=== PATIENT | female | born 1955 | race Caucasian/White ===

== ENCOUNTER 2018-06-21 10:33 | Emergency (ER) | payer OTHER ==
--- NOTE | 2018-06-21 11:24 | EDM.PDOC ---
ED HPI GENERAL MEDICAL PROBLEM - General Chief Complaint: Respiratory Problem Stated Complaint: COUGH,CONGESTION Time Seen by Provider: 06/21/18 10:34 Source of Information: Reports: Patient History Limitations: Reports: No Limitations - History of Present Illness INITIAL COMMENTS - FREE TEXT/NARRATIVE: HISTORY AND PHYSICAL: History of present illness: Patient is a 62-year-old female who presents to the emergency room today with complaints of cough, pain to anterior low ribs bilaterally, and slight shortness of breathe x 1 week. Patient states she was seen at the clinic earlier for sinus infection and placed on Augmentin. She states she did express concerns of her respiratory symptoms at that time, but was told that her lungs sounded clear. She states since that time she has had worsening cough and discomfort to the posterior ribs bilaterally is concerned she has pneumonia or "infiltrate". Review of systems: As per history of present illness and below otherwise all systems reviewed and negative. Past medical history: As per history of present illness and as reviewed below otherwise noncontributory. Surgical history: As per history of present illness and as reviewed below otherwise noncontributory. Social history: No reported history of drug or alcohol abuse. Family history: As per history of present illness and as reviewed below otherwise noncontributory. Physical exam: General: Developed and well-nourished 62-year-old female. Alert and oriented. Nontoxic appearing and in no acute distress. HEENT: Atraumatic, normocephalic, pupils equal and reactive bilaterally, negative for conjunctival pallor or scleral icterus, mucous membranes moist, throat clear, neck supple, nontender, trachea midline. No drooling or trismus noted. No meningeal signs Lungs: Clear to auscultation, breath sounds equal bilaterally, chest nontender. Heart: S1S2, regular rate and rhythm without overt murmur Abdomen: Soft, nondistended, nontender. Negative for masses or hepatosplenomegaly. Negative for costovertebral tenderness. Pelvis: Stable nontender. Genitourinary: Deferred. Rectal: Deferred. Skin: Intact, warm, dry. No lesions or rashes noted. Extremities: Atraumatic, negative for cords or calf pain. Neurovascular unremarkable. Neuro: Awake, alert, oriented. Cranial nerves II through XII unremarkable. Cerebellum unremarkable. Motor and sensory unremarkable throughout. Exam nonfocal. Notes: X-ray shows minor patchy/streaky densities at both lung bases which are probably representing scarring or atelectasis. No evidence of pneumonia or infiltrate. EKG is unremarkable with a sinus rhythm and rate of 77. EKG unchanged from previous EKG 01/15/2015. Diagnostics: CXR, EKG Therapeutics: [] Impression: Bronchitis Plan: 1. Please complete your antibiotic. 2. New prescription for a Medrol dosepak and inhaler for symptomatic relief have been prescribed and electronically sent. 3. Follow-up with your primary care provider in the next 1-2 days. Return to the ED as needed and as discussed. Definitive disposition and diagnosis as appropriate pending reevaluation and review of above. - Related Data Allergies Allergy/AdvReac Type Severity Reaction Status Date / Time erythromycin base Allergy Swollen Verified 06/28/15 11:20 Eyes latex Allergy Redness Verified 06/28/15 11:20 Tetracyclines Allergy Rash Verified 06/28/15 11:20 Home Meds: Home Meds Ca Carbonate/Vitamin D3/Vit K [Citracal Soft Chew] 1 dose PO DAILY 01/15/15 [ History] Denosumab [Prolia] 1 dose INJECT ASDIRECTED 01/15/15 [History] LORazepam [Ativan] 1 tab PO ASDIRECTED PRN 01/15/15 [History] Lisinopril 1 tab PO BEDTIME 01/15/15 [History] Multivitamin [Multivitamins] 1 tab PO DAILY 01/15/15 [History] Psyllium with Sucrose [Metamucil] 1 dose PO ASDIRECTED 01/15/15 [History] Estradiol [Vagifem] 1 applic VAG ASDIRECTED 06/28/15 [History] Aspirin [[place] Aspirin] 81 mg PO DAILY 06/30/15 [History] Albuterol [Proventil HFA] 1 puff INH QID PRN #1 inhaler 06/21/18 [Rx] methylPREDNISolone [Medrol] 4 mg PO DAILY #1 dospk 06/21/18 [Rx] Past Medical History Other Gastrointestinal History: Occasional heartburn, treat with Pepcid, sometimes Rolaids Other Neuro History: Some headaches, past hx: Migraines "none for long time, since post menopausal", hx: Memory loss episode possible 'TIA' testing did not show any evidence but symptoms present and no residual problems Other Dermatologic History: Occasional rash from something when out gardening from time to time - Past Surgical History Other Male Surgeries/Procedures: Laparoscopy, Hysterectomy, has had Bilateral Salpingo-oophorectomy ED ROS GENERAL - Review of Systems Review Of Systems: ROS reveals no pertinent complaints other than HPI. ED EXAM, GENERAL - Physical Exam Exam: See Below (See dictation) Course - Orders/Labs/Meds Orders: Active Orders 24 hr Category Date Time Status EKG Documentation Completion [RC] STAT Care 06/21/18 11:06 Active Chest 2V [CR] Stat Exams 06/21/18 10:34 Taken Departure - Departure Time of Disposition: 11:29 Disposition: Home, Self-Care 01 Clinical Impression: Bronchitis - Discharge Information Prescriptions: Albuterol [Proventil HFA] 1 puff INH QID PRN #1 inhaler PRN Reason: Dyspnea methylPREDNISolone [Medrol] 4 mg PO DAILY #1 dospk Instructions: Acute Bronchitis, Adult, [id number] Referrals: PCP,Unknown [Primary Care Provider] - Forms: ED Department Discharge Additional Instructions: The following information is given to patients seen in the emergency department who are being discharged to home. This information is to outline your options for follow-up care. We provide all patients seen in our emergency department with a follow-up referral. The need for follow-up, as well as the timing and circumstances, are variable depending upon the specifics of your emergency department visit. If you don't have a primary care physician on staff, we will provide you with a referral. We always advise you to contact your personal physician following an emergency department visit to inform them of the circumstance of the visit and for follow-up with them and/or the need for any referrals to a consulting specialist. The emergency department will also refer you to a specialist when appropriate. This referral assures that you have the opportunity for follow-up care with a specialist. All of these measure are taken in an effort to provide you with optimal care, which includes your follow-up. Under all circumstances we always encourage you to contact your private physician who remains a resource for coordinating your care. When calling for follow-up care, please make the office aware that this follow-up is from your recent emergency room visit. If for any reason you are refused follow-up, please contact the [facility] Emergency Department at and asked to speak to the emergency department charge nurse. [facility] [address] [place] [id number] 1. Please complete your antibiotic. 2. New prescription for a Medrol dosepak and inhaler for symptomatic relief have been prescribed and electronically sent. 3. Follow-up with your primary care provider in the next 1-2 days. Return to the ED as needed and as discussed. - My Orders Last 24 Hours: My Active Orders 06/21/18 10:34 Chest 2V [CR] Stat 06/21/18 11:06 EKG Documentation Completion [RC] STAT - Assessment/Plan Last 24 Hours: My Active Orders 06/21/18 10:34 Chest 2V [CR] Stat 06/21/18 11:06 EKG Documentation Completion [RC] STAT
[2018-06-21 11:41] VITALS: BP 131/66
--- NOTE | 2018-06-23 11:39 | CR ---
EXAM DATE: 06/21/18 PATIENT'S AGE: 62 Patient: OTTONIEL RICARDO Facility: [place], [place] Site . Site : [id number] Study: XRay Chest [id number]/21/2018 10:49:47 AM Ordering Physician: Doctor Longo Final Report: HISTORY: Chest pain and [id number]. FINDINGS: Two views of the chest are provided. There are minimal streaky and patchy densities at both lung bases which could represent scarring or minor atelectasis. No focal airspace consolidation is noted to suggest pneumonia radiographically. The mid and upper portions of the lungs are clear and there is no evidence for pneumothorax or pleural effusion. Cardiac silhouette size is enlarged. IMPRESSION: 1. Minor patchy or streaky densities at both lung bases probably representing atelectasis or scarring. 2. Cardiac silhouette enlargement which could represent cardiomegaly, pericardial effusion or both. Dictated by Wiliam Hsieh MD @ Jun 21 2018 11:12AM (Electronic Signature) Report Signed by Proxy. JUAN A
== END 2018-06-21 11:50 | disposition home or self-care (01) ==
LOC: MW.ED 10:33
DX: J40 Bronchitis, not specified as acute or chronic (principal); Z91.040 Latex allergy status; Z88.1 Allergy status to other antibiotic agents; Z79.82 Long term (current) use of aspirin; Z79.899 Other long term (current) drug therapy
CPT/HCPCS: 71046; 71046-26; 93005; 99283; 99283-25

== ENCOUNTER 2020-10-14 14:57 | Observation (INO) | payer MEDICARE, OTHER ==
--- NOTE | 2020-10-14 15:23 | EDM.PDOC ---
ED [facility] GENERAL MEDICAL PROBLEM - General Chief Complaint: Chest Pain Stated Complaint: CHEST PAIN Time Seen by Provider: 10/14/20 15:00 Source of Information: Reports: Patient, Old Records History Limitations: Reports: No Limitations - History of Present Illness INITIAL COMMENTS - FREE TEXT/NARRATIVE: This is a very pleasant 65-year-old female with a past medical history of depr ession, SVT, hypertension presenting with palpitations and chest discomfort. She reports that around 2:00 in the afternoon, she began experiencing substernal chest pain described as "sharp". This is accompanied by feeling somewhat breathless and lightheaded. Symptoms lasted for about 15 minutes and then totally went away. She was concerned so she came to the emergency department for further evaluation. She denies any fever, cough, hemoptysis, history of venous thromboembolism, associated diaphoresis, nausea, or vomiting. No chest wall trauma. No lower extremity swelling or pain. Patient denies history of venous thromboembolism, lower extremity pain or swelling, hemoptysis, recent surgery or immobilization or long travel, history of active malignancy, or hormonal medication/product usage. At present she has no complaints. ROS: A 10-point review of systems was negative, except as noted in the HPI (or in the ROS section of this note). Past medical history: Reviewed, no additional pertinent history. Surgical history: Reviewed in system, no additional pertinent history. Social history: Reviewed in system, no additional pertinent history. Family history: Reviewed in system, no additional pertinent history. PHYSICAL EXAM Vital signs reviewed. Nursing notes reviewed. Constitutional: Awake, alert, non-distressed. Head: Normocephalic, atraumatic. Eyes: EOMI, conjunctiva normal, no discharge, no scleral icterus. Ears, Nose, Throat: External ears and nose normal, moist oral mucosa. Cardiovascular: 2+ radial pulses bilaterally, capillary refill less than 2 seconds. Pulmonary: normal work of breathing, no accessory muscle use. Abdomen/GI: Soft, nontender, nondistended, no guarding or rigidity, no masses. Musculoskeletal: No deformities. Integumentary: Appropriate color for ethnicity, warm, dry, no pallor or jaundice, no rash. Neurologic: Alert, answering questions appropriately, normal speech, no facial droop, moving all extremities well. Psychiatric: Appropriate mood and affect, normal thought process. This patient was seen and evaluated during the 2019 SARS-CoV-2 novel coronavirus pandemic period. Community viral transmission is ongoing at time of this encounter and the emergency department is operating under pandemic response procedures. chest Pain Score (Numeric/FACES): 3 - Related Data Allergies Allergy/AdvReac Type Severity Reaction Status Date / Time erythromycin base Allergy Swollen Verified 10/14/20 15:58 Eyes latex Allergy Redness Verified 10/14/20 15:58 Tetracyclines Allergy Rash Verified 10/14/20 15:58 Home Meds: Home Meds LORazepam [Ativan] 0.5 mg PO ASDIRECTED PRN 01/15/15 [History] Lisinopril 1 tab PO QPM 01/15/15 [History] Multivitamin [Multivitamins] 1 tab PO DAILY 01/15/15 [History] Aspirin [[place] Aspirin EC] 81 mg PO ASDIRECTED 06/30/15 [History] Sertraline HCl 50 mg PO BEDTIME 10/17/18 [History] Calcium/D3/Zinc/Copper/Danielle [Citracal-D3 Maximum Plus Caplt] 1,200 mg PO DAILY 10/14/20 [History] Psyllium Husk [Metamucil] 1 tsp PO DAILY 10/14/20 [History] Past Medical History Cardiovascular History: Reports: Hypertension Gastrointestinal History: Reports: Irritable Bowel Syndrome, Other (See Below) Other Gastrointestinal History: Occasional heartburn, treat with Pepcid, sometimes Rolaids Musculoskeletal History: Reports: Other (See Below) Other Musculoskeletal History: osteopenia Other Neuro History: Some headaches, past hx: Migraines "none for long time, since post menopausal", hx: Memory loss episode possible 'TIA' testing did not show any evidence but symptoms present and no residual problems Other Dermatologic History: Occasional rash from something when out gardening from time to time - Infectious Disease History Infectious Disease History: Reports: Chicken Pox - Past Surgical History HEENT Surgical History: Reports: Tonsillectomy GI Surgical History: Reports: Appendectomy Female Surgical History: Reports: Hysterectomy, Oophorectomy Social & Family History - Family History Family Medical History: No Pertinent Family History - Caffeine Use Caffeine Use: Reports: Coffee ED ROS GENERAL - Review of Systems Review Of Systems: See Below ED EXAM, GENERAL - Physical Exam Exam: See Below #1 Interpretation EKG Interpretation Comments: 12-Lead ECG Interpretation Acquired: 3:05 PM Rhythm: Sinus rhythm Rate: 82 bpm Bowie: Normal Intervals: Normal Ectopy: None RV Strain: No obvious RV strain pattern. ST Segments/T-Waves: ST segment deviation in leads II, 3, aVF, V5-6. T wave inversions in leads II, aVF, V3-5 Acute Ischemic Changes: New T wave inversion in leads V3 through 5 Interpretation: No STEMI. Multilead ST segment depression. Compared to most recent ECG 10/17/2018, new T wave inversions in leads V3-6. Course - Vital Signs Text/Narrative:: Patient hemodynamically stable, afebrile, well-appearing, looks nontoxic. Differential diagnosis includes but is not limited to: ACS, pulmonary embolism, aortic dissection, acute systolic heart failure, pneumonia, pneumothorax, pericardial effusion, pleural effusion, pericarditis, endocarditis, esophageal rupture, GERD, drug-induced chest pain, chest wall pain, and many others. 5:39 PM: Initial troponin negative. Twelve-lead EKG shows new subtle T wave inversions in the anterolateral precordial leads. Patient has been pain-free since before she arrived in the emergency department. Labs are otherwise reassuring. TSH is negative. Chest x-rays show no acute findings. We will obtain 3-hour delta troponin and repeat EKG. 6:37 PM: Given new ECG abnormalities, would favor admission to observation status for serial troponins and ECGs. Second time troponin is ordered. Patient remains pain-free, asymptomatic, resting comfortably. I spoke with the hospitalist Dr. Quarles who agrees to admit to observation. COVID test pending. Remained in the ED through shift change, signed out to Dr. Valero awaiting admission. HEART Score for Major Cardiac Events RESULT SUMMARY: 5 points Moderate Score (4-6 points) Risk of MACE of 12-16.6%. If EKG is highly suspicious, many experts recommend further workup and admission even with a low HEART Score. INPUTS: History > 0 = Slightly suspicious EKG > 2 = Significant ST deviation Age > 2 = ?65 Risk factors > 1 = 1-2 risk factors Initial troponin > 0 = ?normal limit Last Recorded V/S: Last Vital Signs Temp 36.4 C 10/14/20 14:58 Pulse 82 10/14/20 16:00 Resp 17 10/14/20 16:00 BP 125/80 10/14/20 16:00 Pulse Ox 98 10/14/20 16:00 - Orders/Labs/Meds Orders: Active Orders 24 hr Category Date Time Status Admission Status [Patient Status] [ADT] Stat ADT 10/14/20 18:35 Active Cardiac Monitoring [RC] . DIRECTED Care 10/14/20 15:00 Active EKG 12 Lead [EKG Documentation Completion] [RC] STAT Care 10/14/20 16:34 Active Pulse Oximetry [RC] ASDIRECTED Care 10/14/20 15:00 Active CORONAVIRUS COVID-19 PCR PHL Stat Lab 10/14/20 18:36 Ordered TROPONIN I [CHEM] Routine Lab 10/14/20 18:20 Received Labs: Laboratory Tests 10/14/20 10/14/20 10/14/20 Range/Units 16:07 16:07 16:07 WBC 8.21 (4.0-11.0) K/uL RBC 4.29 L (4.30-5.90) M/uL Hgb 13.3 (12.0-16.0) g/dL Hct 41.0 (36.0-46.0) % MCV 95.6 (80.0-98.0) fL MCH 31.0 (27.0-32.0) pg MCHC 32.4 (31.0-37.0) g/dL RDW Std Deviation 44.6 (28.0-62.0) fl RDW Coeff of Mica 13 (11.0-15.0) % Plt Count 310 (150-400) K/uL MPV 9.70 (7.40-12.00) fL Neut % (Auto) 66.9 (48.0-80.0) % Lymph % (Auto) 22.8 (16.0-40.0) % Todd % (Auto) 8.5 (0.0-15.0) % Eos % (Auto) 1.6 (0.0-7.0) % Baso % (Auto) 0.2 (0.0-1.5) % Neut # (Auto) 5.5 (1.4-5.7) K/uL Lymph # (Auto) 1.9 (0.6-2.4) K/uL Todd # (Auto) 0.7 (0.0-0.8) K/uL Eos # (Auto) 0.1 (0.0-0.7) K/uL Baso # (Auto) 0.0 (0.0-0.1) K/uL Nucleated RBC % 0.0 /100WBC Nucleated RBCs # 0 K/uL Sodium 141 (136-145) mmol/L Potassium 3.9 (3.5-5.1) mmol/L Chloride 106 (98-107) mmol/L Carbon Dioxide 29.2 (21.0-32.0) mmol/L BUN 17 (7.0-18.0) mg/dL Creatinine 0.9 (0.6-1.0) mg/dL Est Cr Clr Drug Dosing 46.40 mL/min Estimated GFR (MDRD) > 60.0 ml/min Glucose 121 H (74-106) mg/dL Calcium 9.0 (8.5-10.1) mg/dL Total Bilirubin 0.2 (0.2-1.0) mg/dL AST 31 (15-37) IU/L ALT 43 (14-63) IU/L Alkaline Phosphatase 111 (46-116) U/L Troponin I < 0.050 (0.000-0.056) ng/mL Total Protein 7.3 (6.4-8.2) g/dL Albumin 3.9 (3.4-5.0) g/dL Globulin 3.4 (2.6-4.0) g/dL Albumin/Globulin Ratio 1.1 (0.9-1.6) TSH 3rd Generation 2.99 (0.36-3.74) uIU/mL Departure - Departure Time of Disposition: 18:36 Disposition: Refer to Observation Condition: Good Clinical Impression: Chest pain in adult, Abnormal ECG Referrals: PCP,None [Ordering Only Provider] - Forms: ED Department Discharge Sepsis Event Note (ED) - Focused Exam Vital Signs: Vital Signs Temp Pulse Resp BP Pulse Ox 10/14/20 16:00 82 17 125/80 98 10/14/20 14:58 36.4 C 88 17 137/79 96 - My Orders Last 24 Hours: My Active Orders 10/14/20 15:00 Cardiac Monitoring [RC] . DIRECTED Pulse Oximetry [RC] ASDIRECTED 10/14/20 16:34 EKG 12 Lead [EKG Documentation Completion] [RC] STAT 10/14/20 18:20 TROPONIN I [CHEM] Routine 10/14/20 18:35 Admission Status [Patient Status] [ADT] Stat 10/14/20 18:36 CORONAVIRUS COVID-19 PCR PHL Stat - Assessment/Plan Last 24 Hours: My Active Orders 10/14/20 15:00 Cardiac Monitoring [RC] . DIRECTED Pulse Oximetry [RC] ASDIRECTED 10/14/20 16:34 EKG 12 Lead [EKG Documentation Completion] [RC] STAT 10/14/20 18:20 TROPONIN I [CHEM] Routine 10/14/20 18:35 Admission Status [Patient Status] [ADT] Stat 10/14/20 18:36 CORONAVIRUS COVID-19 PCR PHL Stat
--- NOTE | 2020-10-14 15:56 | CR ---
Indication: Chest pain Comparison: Two-view chest June 21, 2018 Technique: PA and Lateral views chest Findings: There is mild hyperinflation and chronic interstitial change with minimal basilar atelectasis versus scar. The cardiac silhouette is mildly prominent. The bony thorax is grossly intact. Impression: Hyperinflation and chronic interstitial changes without acute cardiopulmonary abnormality. Dictated by Karthik Malone MD @ Oct 14 2020 3:53PM Signed by Dr. Karthik Malone @ Oct 14 2020 3:54PM
[2020-10-14 16:41] LABS: BLOOD UREA NITROGEN,BUN 17 mg/dL (7.0-18.0); CARBON DIOXIDE,CO2 29.2 mmol/L (21.0-32.0); CHLORIDE,CL 106 mmol/L (98-107); GLUCOSE RANDOM 121 mg/dL (74-106); POTASSIUM,K 3.9 mmol/L (3.5-5.1); SODIUM,NA 141 mmol/L (136-145)
[2020-10-14] MEDS ORDERED: Sodium Chloride 0.9% 10 ML SDV IV PRN (19:09)
[2020-10-14] MEDS ORDERED: Sodium Chloride 0.9% 10 ML Syringe FLUSH PRN (19:09)
[2020-10-14] MEDS ORDERED: Ondansetron 4 MG/2 ML SDV IVPUSH PRN (19:09)
[2020-10-14] MEDS ORDERED: Sodium Chloride 0.9% 2.5 ML Syringe FLUSH PRN (19:09)
[2020-10-14] MEDS ORDERED: Acetaminophen 325 MG Tab PO PRN (19:09)
--- NOTE | 2020-10-14 19:50 | PCM.HP.2 ---
H&P History of Present Illness - General Date of Service: 10/14/20 Admit Problem/Dx: Admission Diagnosis/Problem Admission Diagnosis/Problem Chest pain Source of Information: Patient History Limitations: Reports: No Limitations - History of Present Illness Initial Comments - Free Text/Narative: Pt is a 65 y/o F with PMHx of HTN and anxiety. Presented with chest pain earlie r today at 2:00 p.m lasting 15 minutes. Described as substernal squeeze 3/10 on the pain scale. Took an aspirin after the episode. Denies any alleviating fo aggravating factors. Shares that she experienced a similar episode last year which was found to be a an anxiety attack and was seen by Dr. Ryder at that time. Associated symptom the patient had was a moment of dizziness, tachycardia and nausea after the episode. Denies any shortness of breath, radiation of pain, syncope/presyncope, weakness, numbness, tingling, vomiting, diarrhea, fever, chills, cough. Onset of Symptoms: Reports: Today, Sudden Duration of Symptoms: Reports: Minutes: Quality: Reports: Other (squeeze of substernal region ) chest Pain Score (Numeric/FACES): 3 - Related Data Allergies/Adverse Reactions: Allergies Allergy/AdvReac Type Severity Reaction Status Date / Time erythromycin base Allergy Swollen Verified 10/14/20 15:58 Eyes latex Allergy Redness Verified 10/14/20 15:58 Tetracyclines Allergy Rash Verified 10/14/20 15:58 Home Medications: Home Meds LORazepam [Ativan] 0.5 mg PO ASDIRECTED PRN 01/15/15 [History] Lisinopril 1 tab PO QPM 01/15/15 [History] Multivitamin [Multivitamins] 1 tab PO DAILY 01/15/15 [History] Aspirin [[place] Aspirin EC] 81 mg PO ASDIRECTED 06/30/15 [History] Sertraline HCl 50 mg PO BEDTIME 10/17/18 [History] Calcium/D3/Zinc/Copper/Danielle [Citracal-D3 Maximum Plus Caplt] 1,200 mg PO DAILY 10/14/20 [History] Psyllium Husk [Metamucil] 1 tsp PO DAILY 10/14/20 [History] Past Medical History HEENT History: Reports: None Cardiovascular History: Reports: Hypertension Gastrointestinal History: Reports: Irritable Bowel Syndrome, Other (See Below) Other Gastrointestinal History: Occasional heartburn, treat with Pepcid, sometimes Rolaids Genitourinary History: Reports: None Musculoskeletal History: Reports: Other (See Below) Other Musculoskeletal History: osteopenia Other Neuro History: Some headaches, past hx: Migraines "none for long time, since post menopausal", hx: Memory loss episode possible 'TIA' testing did not show any evidence but symptoms present and no residual problems Psychiatric History: Reports: Anxiety Other Dermatologic History: Occasional rash from something when out gardening from time to time - Infectious Disease History Infectious Disease History: Reports: Chicken Pox - Past Surgical History HEENT Surgical History: Reports: Tonsillectomy GI Surgical History: Reports: Appendectomy Female Surgical History: Reports: Hysterectomy, Oophorectomy Social & Family History - Family History Family Medical History: No Pertinent Family History - Tobacco Use Tobacco Use Status *Q: Never Tobacco User Second Hand Smoke Exposure: No - Caffeine Use Caffeine Use: Reports: Coffee - Recreational Drug Use Recreational Drug Use: No H&P Review of Systems - Review of Systems: Review Of Systems: See Below General: Reports: No Symptoms HEENT: Reports: No Symptoms Pulmonary: Reports: No Symptoms Cardiovascular: Reports: Chest Pain, Palpitations, Lightheadedness. Denies: Edema Gastrointestinal: Reports: No Symptoms Genitourinary: Reports: No Symptoms Musculoskeletal: Reports: No Symptoms Skin: Reports: No Symptoms Psychiatric: Reports: No Symptoms Neurological: Reports: No Symptoms Hematologic/Lymphatic: Reports: No Symptoms Immunologic: Reports: No Symptoms Exam - Exam Exam: See Below - Vital Signs Vital Signs: Last Vital Signs Temp 97.6 F 10/14/20 14:58 Pulse 82 10/14/20 16:00 Resp 17 10/14/20 16:00 BP 125/80 10/14/20 16:00 Pulse Ox 98 10/14/20 16:00 Weight: 134 lb 7.712 oz - Exam General: Alert, Oriented, Cooperative HEENT: Conjunctiva Clear, EACs Clear, EOMI, Hearing Intact, Mucosa Moist & [place], Nares Patent, Normal Nasal Septum, Posterior Pharynx Clear, Pupils Equal, Pupils Reactive, PERRLA Neck: Supple, Trachea Midline. No: Lymphadenopathy, JVD, Thyromegaly Lungs: Clear to Auscultation, Normal Respiratory Effort Cardiovascular: Regular Rate, Regular Rhythm GI/Abdominal Exam: Normal Bowel Sounds, Soft, Non-Tender, No Organomegaly Extremities: Normal Inspection, Normal Range of Motion, No Pedal Edema, Normal Capillary Refill Peripheral Pulses: 2+: Radial (L), Radial (R), Dorsalis Pedis (L), Dorsalis Pedis (R) Skin: Warm, Dry Neurological: Cranial Nerves Intact, Reflexes Equal Bilateral, Strength Equal Bilateral Neuro Extensive - Mental Status: Alert, Oriented x3, Normal Mood/Affect, Normal Cognition, Memory Intact Neuro Extensive - Motor, Sensory, Reflexes: CN II-XII Intact, Normal Gait, Normal Reflexes Psychiatric: Alert, Normal Affect, Normal Mood - Patient Data Lab Results Last 24 hrs: Laboratory Results - last 24 hr 10/14/20 10/14/20 10/14/20 Range/Units 16:07 16:07 16:07 WBC 8.21 (4.0-11.0) K/uL RBC 4.29 L (4.30-5.90) M/uL Hgb 13.3 (12.0-16.0) g/dL Hct 41.0 (36.0-46.0) % MCV 95.6 (80.0-98.0) fL MCH 31.0 (27.0-32.0) pg MCHC 32.4 (31.0-37.0) g/dL RDW Std Deviation 44.6 (28.0-62.0) fl RDW Coeff of Mica 13 (11.0-15.0) % Plt Count 310 (150-400) K/uL MPV 9.70 (7.40-12.00) fL Neut % (Auto) 66.9 (48.0-80.0) % Lymph % (Auto) 22.8 (16.0-40.0) % [place] % (Auto) 8.5 (0.0-15.0) % Eos % (Auto) 1.6 (0.0-7.0) % Baso % (Auto) 0.2 (0.0-1.5) % Neut # (Auto) 5.5 (1.4-5.7) K/uL Lymph # (Auto) 1.9 (0.6-2.4) K/uL [place] # (Auto) 0.7 (0.0-0.8) K/uL Eos # (Auto) 0.1 (0.0-0.7) K/uL Baso # (Auto) 0.0 (0.0-0.1) K/uL Nucleated RBC % 0.0 /100WBC Nucleated RBCs # 0 K/uL Sodium 141 (136-145) mmol/L Potassium 3.9 (3.5-5.1) mmol/L Chloride 106 (98-107) mmol/L Carbon Dioxide 29.2 (21.0-32.0) mmol/L BUN 17 (7.0-18.0) mg/dL Creatinine 0.9 (0.6-1.0) mg/dL Est Cr Clr Drug Dosing 46.40 mL/min Estimated GFR (MDRD) > 60.0 ml/min Glucose 121 H (74-106) mg/dL Calcium 9.0 (8.5-10.1) mg/dL Phosphorus (2.6-4.7) mg/dL Magnesium (1.8-2.4) mg/dL Total Bilirubin 0.2 (0.2-1.0) mg/dL AST 31 (15-37) IU/L ALT 43 (14-63) IU/L Alkaline Phosphatase 111 (46-116) U/L Troponin I < 0.050 (0.000-0.056) ng/mL Total Protein 7.3 (6.4-8.2) g/dL Albumin 3.9 (3.4-5.0) g/dL Globulin 3.4 (2.6-4.0) g/dL Albumin/Globulin Ratio 1.1 (0.9-1.6) TSH 3rd Generation 2.99 (0.36-3.74) uIU/mL 10/14/20 10/14/20 Range/Units 18:20 18:20 WBC (4.0-11.0) K/uL RBC (4.30-5.90) M/uL Hgb (12.0-16.0) g/dL Hct (36.0-46.0) % MCV (80.0-98.0) fL MCH (27.0-32.0) pg MCHC (31.0-37.0) g/dL RDW Std Deviation (28.0-62.0) fl RDW Coeff of Mica (11.0-15.0) % Plt Count (150-400) K/uL MPV (7.40-12.00) fL Neut % (Auto) (48.0-80.0) % Lymph % (Auto) (16.0-40.0) % [place] % (Auto) (0.0-15.0) % Eos % (Auto) (0.0-7.0) % Baso % (Auto) (0.0-1.5) % Neut # (Auto) (1.4-5.7) K/uL Lymph # (Auto) (0.6-2.4) K/uL [place] # (Auto) (0.0-0.8) K/uL Eos # (Auto) (0.0-0.7) K/uL Baso # (Auto) (0.0-0.1) K/uL Nucleated RBC % /100WBC Nucleated RBCs # K/uL Sodium (136-145) mmol/L Potassium (3.5-5.1) mmol/L Chloride (98-107) mmol/L Carbon Dioxide (21.0-32.0) mmol/L BUN (7.0-18.0) mg/dL Creatinine (0.6-1.0) mg/dL Est Cr Clr Drug Dosing mL/min Estimated GFR (MDRD) ml/min Glucose (74-106) mg/dL Calcium (8.5-10.1) mg/dL Phosphorus 3.3 (2.6-4.7) mg/dL Magnesium 2.4 (1.8-2.4) mg/dL Total Bilirubin (0.2-1.0) mg/dL AST (15-37) IU/L ALT (14-63) IU/L Alkaline Phosphatase (46-116) U/L Troponin I < 0.050 (0.000-0.056) ng/mL Total Protein (6.4-8.2) g/dL Albumin (3.4-5.0) g/dL Globulin (2.6-4.0) g/dL Albumin/Globulin Ratio (0.9-1.6) TSH 3rd Generation (0.36-3.74) uIU/mL Result Diagrams: 10/14/20 16:07 10/14/20 16:07 Sepsis Event Note - Evaluation Sepsis Screening Result: No Definite Risk - Focused Exam Vital Signs: Vital Signs Temp Pulse Resp BP Pulse Ox 10/14/20 16:00 82 17 125/80 98 10/14/20 14:58 97.6 F 88 17 137/79 96 - Problem List (1) Chest pain in adult SNOMED Code(s): 84297287 ICD Code: R07.9 - CHEST PAIN, UNSPECIFIED Status: Acute Current Visit: Yes Problem List Initiated/Reviewed/Updated: Yes Orders Last 24hrs: Active Orders 24 hr Category Date Time Status Admission Status [Patient Status] [ADT] Stat ADT 10/14/20 18:35 Active Antiembolic Devices [RC] PER UNIT ROUTINE Care 10/14/20 19:10 Active Cardiac Monitoring [RC] . DIRECTED Care 10/14/20 15:00 Active EKG 12 Lead [EKG Documentation Completion] [RC] STAT Care 10/14/20 16:34 Active Oxygen Therapy [RC] PRN Care 10/14/20 19:09 Active Pulse Oximetry [RC] ASDIRECTED Care 10/14/20 15:00 Active Telemetry Monitoring [Cardiac Monitoring] [RC] . Care 10/14/20 19:08 Active DIRECTED Up ad Jami [RC] ASDIRECTED Care 10/14/20 19:09 Active VTE/DVT Education [RC] PER UNIT ROUTINE Care 10/14/20 19:09 Active Vital Signs [RC] Q4H Care 10/14/20 19:09 Active Heart Healthy Diet [DIET] Diet 10/14/20 Dinner Active CBC WITH AUTO DIFF [HEME] AM Lab 10/15/20 05:11 Ordered CMP [COMPREHENSIVE METABOLIC PN,CMP] [CHEM] AM Lab 10/15/20 05:11 Ordered CORONAVIRUS COVID-19 [facility] [MOLEC] Stat Lab 10/14/20 19:20 Received TROPONIN I [CHEM] Q6H Lab 10/15/20 00:30 Ordered TROPONIN I [CHEM] Q6H Lab 10/15/20 06:30 Ordered Acetaminophen [TylenoL] Med 10/14/20 19:09 Active 650 mg PO Q4H PRN Aspirin Med 10/15/20 09:00 Active 81 mg PO DAILY Ondansetron [Zofran] Med 10/14/20 19:09 Active 4 mg IVPUSH Q4H PRN Sertraline [Zoloft] Med 10/14/20 21:00 Active 50 mg PO BEDTIME Sodium Chloride 0.9% [Normal Saline] Med 10/14/20 19:09 Active 10 ml IV ASDIRECTED PRN Sodium Chloride 0.9% [Saline Flush] Med 10/14/20 19:09 Active 10 ml FLUSH ASDIRECTED PRN Sodium Chloride 0.9% [Saline Flush] Med 10/14/20 19:09 Active 2.5 ml FLUSH ASDIRECTED PRN lisinopriL [Prinivil] Med 10/15/20 09:00 Active 20 mg PO DAILY Peripheral IV Insertion Adult [OM.PC] Routine Oth 10/14/20 19:09 Ordered Sequential Compression Device [OM.PC] Per Unit Routine Oth 10/14/20 19:09 Ordered Resuscitation Status Routine Resus Stat 10/14/20 19:09 Ordered Medication Orders Acetaminophen (Tylenol) 650 mg PO Q4H PRN PRN Reason: Pain (Mild 1-3)/fever Aspirin (Aspirin) 81 mg PO DAILY [facility] Lisinopril (Prinivil) 20 mg PO DAILY [facility] Ondansetron HCl (Zofran) 4 mg IVPUSH Q4H PRN PRN Reason: Nausea Sertraline HCl (Zoloft) 50 mg PO BEDTIME [facility] Sodium Chloride (Saline Flush) 10 ml FLUSH ASDIRECTED PRN PRN Reason: Keep Vein Open Sodium Chloride (Saline Flush) 2.5 ml FLUSH ASDIRECTED PRN PRN Reason: Keep Vein Open Sodium Chloride (Normal Saline) 10 ml IV ASDIRECTED PRN PRN Reason: IV Use Assessment/Plan Comment:: Pt is a 65 y/o F who was admitted for chest pain, with EKG changes noted in the ED. 1.ACS rule out: -CXR- no cute cardiopulmonary findings -EKG-Interpretation: No STEMI. Multilead ST segment depression. Compared to most recent ECG 10/17/2018, new T wave inversions in leads V3-6. -trending troponins Q6H 3x total. Fist were negative -Tele for continuous cardiac monitoring, -HH diet, -SCD's for DVT ppx, -Pantoprazole for GI ppx, -Zofran for nausea, -Tylenol for pain. 2. PMHx of HTN, anxiety, IBS- resume home dose of medications
[2020-10-14] MEDS ORDERED: Sertraline 50 MG Tab PO SCH (21:00)
[2020-10-14] MEDS ORDERED: Lisinopril 10 MG Tab PO SCH (22:00)
[2020-10-15 07:05] LABS: BLOOD UREA NITROGEN,BUN 17 mg/dL (7.0-18.0); CARBON DIOXIDE,CO2 29.2 mmol/L (21.0-32.0); CHLORIDE,CL 108 mmol/L (98-107); GLUCOSE RANDOM 97 mg/dL (74-106); POTASSIUM,K 3.9 mmol/L (3.5-5.1); SODIUM,NA 143 mmol/L (136-145)
[2020-10-15] MEDS ORDERED: Aspirin 81 MG Tab.Chew PO SCH (09:00)
[2020-10-15 11:57] LABS: HEMOGLOBIN A1C 5.7 %
--- NOTE | 2020-10-15 12:30 | PCM.DCSUM1 ---
Discharge Summary - Discharge Data Discharge Date: 10/15/20 Discharge Disposition: Home, Self-Care 01 Condition: Stable - Referral to Home Health Primary Care Physician: HAYLEY Payton - Patient Summary/Data Hospital Course: Pt is a 65 y/o F with PMHx of HTN and anxiety who was admitted for Chest pain. She presented with a 15 minute epsidoed of substernal chest pressure and palpit ations. She was observed overnight without any events on telemetry. She ruled out for acute coronary sydnrome with serial negative cardiac enzymes and EKG. She is requesting discharge this morning. She was referred to exercise stress testing, and Zio patch. She is to follow up with Dr. Pearson. - Patient Instructions Diet: Heart Healthy Diet - Discharge Plan Home Medications: Home Meds LORazepam [Ativan] 0.5 mg PO ASDIRECTED PRN 01/15/15 [History] Lisinopril 1 tab PO QPM 01/15/15 [History] Multivitamin [Multivitamins] 1 tab PO DAILY 01/15/15 [History] Aspirin [[place] Aspirin EC] 81 mg PO ASDIRECTED 06/30/15 [History] Sertraline HCl 50 mg PO BEDTIME 10/17/18 [History] Calcium/D3/Zinc/Copper/Danielle [Citracal-D3 Maximum Plus Caplt] 1,200 mg PO DAILY 10/14/20 [History] Psyllium Husk [Metamucil] 1 tsp PO DAILY 10/14/20 [History] Patient Handouts: Nonspecific Chest Pain, Adult, [id number] Referrals: Shelly Jones MD [Physician] - Rosalinda Casas PA [Primary Care Provider] - - Discharge Summary/Plan Comment DC Time >30 min.: No - Patient Data Vitals - Most Recent: Last Vital Signs Temp 36.6 C 10/15/20 09:00 Pulse 67 10/15/20 09:00 Resp 17 10/15/20 09:00 BP 128/68 10/15/20 09:00 Pulse Ox 96 10/15/20 09:00 Weight - Most Recent: 59.103 kg Lab Results - Last 24 hrs: Laboratory Results - last 24 hr 10/14/20 10/14/20 10/14/20 Range/Units 16:07 16:07 16:07 WBC 8.21 (4.0-11.0) K/uL RBC 4.29 L (4.30-5.90) M/uL Hgb 13.3 (12.0-16.0) g/dL Hct 41.0 (36.0-46.0) % MCV 95.6 (80.0-98.0) fL MCH 31.0 (27.0-32.0) pg MCHC 32.4 (31.0-37.0) g/dL RDW Std Deviation 44.6 (28.0-62.0) fl RDW Coeff of Mica 13 (11.0-15.0) % Plt Count 310 (150-400) K/uL MPV 9.70 (7.40-12.00) fL Neut % (Auto) 66.9 (48.0-80.0) % Lymph % (Auto) 22.8 (16.0-40.0) % [place] % (Auto) 8.5 (0.0-15.0) % Eos % (Auto) 1.6 (0.0-7.0) % Baso % (Auto) 0.2 (0.0-1.5) % Neut # (Auto) 5.5 (1.4-5.7) K/uL Lymph # (Auto) 1.9 (0.6-2.4) K/uL [place] # (Auto) 0.7 (0.0-0.8) K/uL Eos # (Auto) 0.1 (0.0-0.7) K/uL Baso # (Auto) 0.0 (0.0-0.1) K/uL Nucleated RBC % 0.0 /100WBC Nucleated RBCs # 0 K/uL Sodium 141 (136-145) mmol/L Potassium 3.9 (3.5-5.1) mmol/L Chloride 106 (98-107) mmol/L Carbon Dioxide 29.2 (21.0-32.0) mmol/L BUN 17 (7.0-18.0) mg/dL Creatinine 0.9 (0.6-1.0) mg/dL Est Cr Clr Drug Dosing 46.40 mL/min Estimated GFR (MDRD) > 60.0 ml/min Glucose 121 H (74-106) mg/dL Hemoglobin A1c (4.5 - 6.2) % Calcium 9.0 (8.5-10.1) mg/dL Phosphorus (2.6-4.7) mg/dL Magnesium (1.8-2.4) mg/dL Total Bilirubin 0.2 (0.2-1.0) mg/dL AST 31 (15-37) IU/L ALT 43 (14-63) IU/L Alkaline Phosphatase 111 (46-116) U/L Troponin I < 0.050 (0.000-0.056) ng/mL Total Protein 7.3 (6.4-8.2) g/dL Albumin 3.9 (3.4-5.0) g/dL Globulin 3.4 (2.6-4.0) g/dL Albumin/Globulin Ratio 1.1 (0.9-1.6) Triglycerides (0-200) mg/dL Cholesterol (50-200) mg/dL LDL Cholesterol, Calc (60-180) mg/dL VLDL Cholesterol (5-55) mg/dL HDL Cholesterol (40-60) mg/dL Cholesterol/HDL Ratio (3.3-6.0) TSH 3rd Generation 2.99 (0.36-3.74) uIU/mL SARS-CoV-2 RNA ([facility]) (NEGATIVE) 10/14/20 10/14/20 10/14/20 Range/Units 18:20 18:20 19:20 WBC (4.0-11.0) K/uL RBC (4.30-5.90) M/uL Hgb (12.0-16.0) g/dL Hct (36.0-46.0) % MCV (80.0-98.0) fL MCH (27.0-32.0) pg MCHC (31.0-37.0) g/dL RDW Std Deviation (28.0-62.0) fl RDW Coeff of Mica (11.0-15.0) % Plt Count (150-400) K/uL MPV (7.40-12.00) fL Neut % (Auto) (48.0-80.0) % Lymph % (Auto) (16.0-40.0) % [place] % (Auto) (0.0-15.0) % Eos % (Auto) (0.0-7.0) % Baso % (Auto) (0.0-1.5) % Neut # (Auto) (1.4-5.7) K/uL Lymph # (Auto) (0.6-2.4) K/uL [place] # (Auto) (0.0-0.8) K/uL Eos # (Auto) (0.0-0.7) K/uL Baso # (Auto) (0.0-0.1) K/uL Nucleated RBC % /100WBC Nucleated RBCs # K/uL Sodium (136-145) mmol/L Potassium (3.5-5.1) mmol/L Chloride (98-107) mmol/L Carbon Dioxide (21.0-32.0) mmol/L BUN (7.0-18.0) mg/dL Creatinine (0.6-1.0) mg/dL Est Cr Clr Drug Dosing mL/min Estimated GFR (MDRD) ml/min Glucose (74-106) mg/dL Hemoglobin A1c (4.5 - 6.2) % Calcium (8.5-10.1) mg/dL Phosphorus 3.3 (2.6-4.7) mg/dL Magnesium 2.4 (1.8-2.4) mg/dL Total Bilirubin (0.2-1.0) mg/dL AST (15-37) IU/L ALT (14-63) IU/L Alkaline Phosphatase (46-116) U/L Troponin I < 0.050 (0.000-0.056) ng/mL Total Protein (6.4-8.2) g/dL Albumin (3.4-5.0) g/dL Globulin (2.6-4.0) g/dL Albumin/Globulin Ratio (0.9-1.6) Triglycerides (0-200) mg/dL Cholesterol (50-200) mg/dL LDL Cholesterol, Calc (60-180) mg/dL VLDL Cholesterol (5-55) mg/dL HDL Cholesterol (40-60) mg/dL Cholesterol/HDL Ratio (3.3-6.0) TSH 3rd Generation (0.36-3.74) uIU/mL SARS-CoV-2 RNA ([facility]) NEGATIVE (NEGATIVE) 11/14/20 11/14/20 11/14/20 Range/Units 00:30 06:35 06:35 WBC 7.19 (4.0-11.0) K/uL RBC 4.16 L (4.30-5.90) M/uL Hgb 12.9 (12.0-16.0) g/dL Hct 40.0 (36.0-46.0) % MCV 96.2 (80.0-98.0) fL MCH 31.0 (27.0-32.0) pg MCHC 32.3 (31.0-37.0) g/dL RDW Std Deviation 45.3 (28.0-62.0) fl RDW Coeff of Mica 13 (11.0-15.0) % Plt Count 293 (150-400) K/uL MPV 9.70 (7.40-12.00) fL Neut % (Auto) 59.9 (48.0-80.0) % Lymph % (Auto) 27.5 (16.0-40.0) % [place] % (Auto) 10.6 (0.0-15.0) % Eos % (Auto) 1.7 (0.0-7.0) % Baso % (Auto) 0.3 (0.0-1.5) % Neut # (Auto) 4.3 (1.4-5.7) K/uL Lymph # (Auto) 2.0 (0.6-2.4) K/uL [place] # (Auto) 0.8 (0.0-0.8) K/uL Eos # (Auto) 0.1 (0.0-0.7) K/uL Baso # (Auto) 0.0 (0.0-0.1) K/uL Nucleated RBC % 0.0 /100WBC Nucleated RBCs # 0 K/uL Sodium (136-145) mmol/L Potassium (3.5-5.1) mmol/L Chloride (98-107) mmol/L Carbon Dioxide (21.0-32.0) mmol/L BUN (7.0-18.0) mg/dL Creatinine (0.6-1.0) mg/dL Est Cr Clr Drug Dosing mL/min Estimated GFR (MDRD) ml/min Glucose (74-106) mg/dL Hemoglobin A1c (4.5 - 6.2) % Calcium (8.5-10.1) mg/dL Phosphorus (2.6-4.7) mg/dL Magnesium (1.8-2.4) mg/dL Total Bilirubin (0.2-1.0) mg/dL AST (15-37) IU/L ALT (14-63) IU/L Alkaline Phosphatase (46-116) U/L Troponin I < 0.050 < 0.050 (0.000-0.056) ng/mL Total Protein (6.4-8.2) g/dL Albumin (3.4-5.0) g/dL Globulin (2.6-4.0) g/dL Albumin/Globulin Ratio (0.9-1.6) Triglycerides (0-200) mg/dL Cholesterol (50-200) mg/dL LDL Cholesterol, Calc (60-180) mg/dL VLDL Cholesterol (5-55) mg/dL HDL Cholesterol (40-60) mg/dL Cholesterol/HDL Ratio (3.3-6.0) TSH 3rd Generation (0.36-3.74) uIU/mL SARS-CoV-2 RNA ([facility]) (NEGATIVE) 10/15/20 10/15/20 10/15/20 Range/Units 06:35 06:38 06:38 WBC (4.0-11.0) K/uL RBC (4.30-5.90) M/uL Hgb (12.0-16.0) g/dL Hct (36.0-46.0) % MCV (80.0-98.0) fL MCH (27.0-32.0) pg MCHC (31.0-37.0) g/dL RDW Std Deviation (28.0-62.0) fl RDW Coeff of Mica (11.0-15.0) % Plt Count (150-400) K/uL MPV (7.40-12.00) fL Neut % (Auto) (48.0-80.0) % Lymph % (Auto) (16.0-40.0) % [place] % (Auto) (0.0-15.0) % Eos % (Auto) (0.0-7.0) % Baso % (Auto) (0.0-1.5) % Neut # (Auto) (1.4-5.7) K/uL Lymph # (Auto) (0.6-2.4) K/uL [place] # (Auto) (0.0-0.8) K/uL Eos # (Auto) (0.0-0.7) K/uL Baso # (Auto) (0.0-0.1) K/uL Nucleated RBC % /100WBC Nucleated RBCs # K/uL Sodium 143 (136-145) mmol/L Potassium 3.9 (3.5-5.1) mmol/L Chloride 108 H (98-107) mmol/L Carbon Dioxide 29.2 (21.0-32.0) mmol/L BUN 17 (7.0-18.0) mg/dL Creatinine 0.8 (0.6-1.0) mg/dL Est Cr Clr Drug Dosing 52.20 mL/min Estimated GFR (MDRD) > 60.0 ml/min Glucose 97 (74-106) mg/dL Hemoglobin A1c 5.7 (4.5 - 6.2) % Calcium 9.3 (8.5-10.1) mg/dL Phosphorus (2.6-4.7) mg/dL Magnesium (1.8-2.4) mg/dL Total Bilirubin 0.4 (0.2-1.0) mg/dL AST 28 (15-37) IU/L ALT 37 (14-63) IU/L Alkaline Phosphatase 103 (46-116) U/L Troponin I (0.000-0.056) ng/mL Total Protein 6.7 (6.4-8.2) g/dL Albumin 3.6 (3.4-5.0) g/dL Globulin 3.1 (2.6-4.0) g/dL Albumin/Globulin Ratio 1.2 (0.9-1.6) Triglycerides 84 (0-200) mg/dL Cholesterol 191 (50-200) mg/dL LDL Cholesterol, Calc 107 (60-180) mg/dL VLDL Cholesterol 16 (5-55) mg/dL HDL Cholesterol 67 H (40-60) mg/dL Cholesterol/HDL Ratio 2.9 L (3.3-6.0) TSH 3rd Generation (0.36-3.74) uIU/mL SARS-CoV-2 RNA ([facility]) (NEGATIVE) Med Orders - Current: Current Medications Acetaminophen (Tylenol) 650 mg PO Q4H PRN PRN Reason: Pain (Mild 1-3)/fever Aspirin (Aspirin) 81 mg PO DAILY [facility] Last Admin: 10/15/20 09:10 Dose: 81 mg Documented by: Lisinopril (Prinivil) 20 mg PO BEDTIME [facility] Last Admin: 10/14/20 22:00 Dose: 20 mg Documented by: Ondansetron HCl (Zofran) 4 mg IVPUSH Q4H PRN PRN Reason: Nausea Sertraline HCl (Zoloft) 50 mg PO BEDTIME [facility] Last Admin: 10/14/20 22:00 Dose: 50 mg Documented by: Sodium Chloride (Saline Flush) 10 ml FLUSH ASDIRECTED PRN PRN Reason: Keep Vein Open Sodium Chloride (Saline Flush) 2.5 ml FLUSH ASDIRECTED PRN PRN Reason: Keep Vein Open Sodium Chloride (Normal Saline) 10 ml IV ASDIRECTED PRN PRN Reason: IV Use
[2020-10-15 13:25] VITALS: BP 127/69; PULSE 69
== END 2020-10-15 13:05 | disposition home or self-care (01) ==
LOC: MW.ED 14:57 → MW.MS 18:35
PROVIDERS: ADMIT Internal Medicine; ATTEND Internal Medicine
DX: R07.9 Chest pain, unspecified (principal); I10 Essential (primary) hypertension; F41.9 Anxiety disorder, unspecified; Z88.1 Allergy status to other antibiotic agents; Z91.040 Latex allergy status; Z79.899 Other long term (current) drug therapy; Z98.890 Other specified postprocedural states; Z79.82 Long term (current) use of aspirin; Z20.828 Contact with and (suspected) exposure to other viral communicable diseases
CPT/HCPCS: 36415; 71046; 80053; 80061; 83036; 83735; 84100; 84443; 84484; 85025; 99285; A9270; G0378; U0002; 93010; 99217; 99219; 99283

== ENCOUNTER 2021-08-16 08:50 | Day surgery (SDC) | payer MEDICARE, OTHER ==
--- NOTE | 2021-08-16 09:14 | PCM.PREANE ---
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.) Neurological: No Symptoms (Migraines) Other: Reports: Depression, Anxiety - Physical Assessment NPO Status Date: 08/15/21 NPO Status Time: 08:00 (Solids, >8hr liq) Height: 5 ft 1 in Weight: 58.06 kg ASA Class: 2 Mental Status: Alert & Oriented x3 Airway Class: Mallampati = 2 Dentition: Reports: Normal Dentition Thyro-Mental Finger Breadths: 3 Mouth Opening Finger Breadths: 3 ROM/Head Extension: Full Lungs: Clear to Auscultation, Normal Respiratory Effort Cardiovascular: Regular Rate, Regular Rhythm - Allergies Allergies/Adverse Reactions: Allergies Allergy/AdvReac Type Severity Reaction Status Date / Time codeine Allergy Nausea Verified 08/10/21 08:26 erythromycin base Allergy Swollen Verified 08/10/21 08:20 Eyes latex Allergy Redness Verified 08/10/21 08:20 Tetracyclines Allergy Rash Verified 08/10/21 08:20 - Acknowledgements Anesthesia Type Planned: General Anesthesia Pt an Appropriate Candidate for the Planned Anesthesia: Yes Alternatives and Risks of Anesthesia Discussed w Pt/Guardian: Yes Pt/Guardian Understands and Agrees with Anesthesia Plan: Yes PreAnesthesia Questionnaire HEENT History: Reports: Other (See Below) Other HEENT History: wears glasses Cardiovascular History: Reports: Hypertension Respiratory History: Reports: None Gastrointestinal History: Reports: Irritable Bowel Syndrome, Other (See Below) Other Gastrointestinal History: Occasional heartburn, Genitourinary History: Reports: None [employer] History: Reports: Musculoskeletal History: Reports: Other (See Below) Other Musculoskeletal History: osteopenia Neurological History: Reports: Migraines Psychiatric History: Reports: Anxiety, Depression Endocrine/Metabolic History: Reports: None Hematologic History: Reports: None Immunologic History: Reports: None Oncologic (Cancer) History: Reports: None Dermatologic History: Reports: None - Infectious Disease History Infectious Disease History: Reports: Chicken Pox - Past Surgical History Head Surgeries/Procedures: Reports: None HEENT Surgical History: Reports: Tonsillectomy Cardiovascular Surgical History: Reports: None Respiratory Surgical History: Reports: None GI Surgical History: Reports: Appendectomy, Colonoscopy Female Surgical History: Reports: Breast Biopsy, Hysterectomy, Salpingo- Oophorectomy, Other (See Below) Other Female Surgeries/Procedures: laparoscopy Endocrine Surgical History: Reports: None Neurological Surgical History: Reports: None Musculoskeletal Surgical History: Reports: None Oncologic Surgical History: Reports: None Dermatological Surgical History: Reports: None - SUBSTANCE USE Tobacco Use Status *Q: Never Tobacco User - HOME MEDS Home Medications: Home Meds LORazepam [Ativan] 0.5 - 1 tab PO ASDIRECTED PRN 01/15/15 [History] Lisinopril 20 mg PO QPM 01/15/15 [History] Multivitamin [Multivitamins] 1 tab PO DAILY 01/15/15 [History] Aspirin [[place] Aspirin EC] 81 mg PO ASDIRECTED 06/30/15 [History] Sertraline HCl 50 mg PO BEDTIME 10/17/18 [History] Calcium/D3/Zinc/Copper/Danielle [Citracal-D3 Maximum Plus Caplt] 1 tab PO DAILY 10/14/20 [History] Psyllium Husk [Metamucil] 1 tsp PO DAILY 10/14/20 [History] - CURRENT (IN HOUSE) MEDS Current Meds: Current Medications Lactated Ringer's (Ringers, Lactated) 1,000 mls @ 125 mls/hr IV ASDIRECTED [facility]
[2021-08-16] MEDS ORDERED: fentaNYL 100 MCG/2 ML SDV ONE (09:23)
[2021-08-16] MEDS ORDERED: Lactated Ringers 1,000 ML IV SCH (09:45)
[2021-08-16] MEDS ORDERED: propofoL 50 ML ONE (10:03)
--- NOTE | 2021-08-16 11:44 | PCM.OPNOTE ---
- General Post-Op/Procedure Note Date of Surgery/Procedure: 08/16/21 Operative Procedure(s): colonoscopy. random biopsies Findings: Normal colon dictation number [id number] Pre Op Diagnosis: abdominal pain and CT shows fat stranding around the mid sigmoid in June Post-Op Diagnosis: Normal colon Anesthesia Technique: MAC Primary Surgeon: Mando Quarles Pathology: random biopsies Complications: None Condition: Good
--- NOTE | 2021-08-16 11:45 | PCM.POSTAN ---
POST ANESTHESIA ASSESSMENT - MENTAL STATUS Mental Status: Alert, Oriented - VITAL SIGNS Vital Signs: Last Vital Signs Temp 97.2 F 08/16/21 09:10 Pulse 72 08/16/21 09:10 Resp 16 08/16/21 09:10 BP 145/75 H 08/16/21 09:10 Pulse Ox 99 08/16/21 09:10 - RESPIRATORY Respiratory Status: Respiratory Rate WNL, Airway Patent, O2 Saturation Stable - CARDIOVASCULAR CV Status: Pulse Rate WNL, Blood Pressure Stable - GASTROINTESTINAL GI Status: No Symptoms - PAIN Pain Score: 0 - POST OP HYDRATION Hydration Status: Adequate & Stable
--- NOTE | 2021-08-16 11:50 | PCM48HPAN ---
Post Anesthesia Note - EVALUATION WITHIN 48HRS OF ANESTHETIC Vital Signs in Normal Range: Yes Patient Participated in Evaluation: Yes Respiratory Function Stable: Yes Airway Patent: Yes Cardiovascular Function Stable: Yes Hydration Status Stable: Yes Pain Control Satisfactory: Yes Nausea and Vomiting Control Satisfactory: Yes Mental Status Recovered: Yes Vital Signs: Last Vital Signs Temp 97.2 F 08/16/21 11:42 Pulse 57 L 08/16/21 11:42 Resp 11 L 08/16/21 11:42 BP 93/47 L 08/16/21 11:42 Pulse Ox 99 08/16/21 11:42 - COMMENTS/OBSERVATIONS Free Text/Narrative:: Pt doing well post-op. VSS. No apparent anesthetic complications. Dr. Germán Christian
[2021-08-16 13:28] VITALS: BP 130/74; PULSE 58
--- NOTE | 2021-08-16 19:26 | OR ---
SURGEON: SATHYA KELLEY MD DATE OF PROCEDURE: 08/16/2021 PREOPERATIVE DIAGNOSIS: Abdominal pain. The patient had a CT scan done this June which shows some fat stranding on a short segment of the sigmoid colon. POSTOPERATIVE DIAGNOSIS: Normal colonoscopy. PRIMARY SURGEON: Sathya Kelley MD ANESTHESIA: With Anesthesiology. EXTENT OF THE COLONOSCOPY: To the cecum. BOWEL PREP: Excellent. LIMITATIONS: None. PROCEDURES: Colonoscopy with random biopsies of the descending and sigmoid colon. REASON FOR PROCEDURE: Patient is a pleasant 66-year-old female whose last colonoscopy was about five and half years ago which was normal. She denies any blood in her stool. She does say her grandfather had cancerous polyps removed. The patient was visiting [place] this June and had three days of gas pains and painful bowel movements. She said she had a CT scan there which showed some small fat stranding around a short segment of the sigmoid. She has no issues since then. PROCEDURE IN DETAIL: Physical examination was performed. The major risks and benefits associated with the procedure were explained to the patient in detail. The patient verbalized understanding and agreement of the same. The patient was then connected to the appropriate monitoring device and IV was started. EKG, pulse, pulse oximetry, blood pressure, and capnography were monitored throughout the entire procedure. Continuous oxygen and sedation were provided by the anesthesiologist. The patient was placed in the left lateral decubitus position. Sedation began. After adequate sedation achieved, a digital rectal exam was performed. No rectal masses or polyps felt. Now, a well-lubricated Olympus colonoscope was inserted into the rectum and advanced under direct visualization to the level of the cecum. The patient had a somewhat mobile sigmoid, but with some external abdominal pressure, I did intubate the cecum. The scope was then slowly withdrawn in a somewhat circular fashion looking at the color, texture, anatomy, and integrity of mucosa from the cecum to the anal canal. The patient had some light liquid stool which was suctioned and irrigated out for a good look at the mucosa. No polyps or lesions were seen. Since the patient did have some sigmoid fat stranding seen on the CT scan, I did do random biopsies throughout the descending and sigmoid colon. Scope was retroflexed in the rectum. Scope was then completely removed, and the procedure was terminated. ENDOSCOPIC DIAGNOSIS: Normal colonoscopy. RECOMMENDATIONS: Followup will depend on pathology, most likely will be in around five years because of her family history of colon cancer. She may need one sooner if she develops signs and symptoms such as change in bowel habits or blood in her stool. MELLY CROSS /[id number] MTDD
== END 2021-08-16 12:25 | disposition home or self-care (01) ==
LOC: MW.SDS 08:50
PROVIDERS: ATTEND Surgery
DX: R10.9 Unspecified abdominal pain (principal); I10 Essential (primary) hypertension; I47.1 Supraventricular tachycardia; Z88.5 Allergy status to narcotic agent; Z88.8 Allergy status to other drugs, medicaments and biological substances; Z91.040 Latex allergy status; Z79.82 Long term (current) use of aspirin; Z79.899 Other long term (current) drug therapy; Z90.49 Acquired absence of other specified parts of digestive tract; Z98.890 Other specified postprocedural states; Z80.0 Family history of malignant neoplasm of digestive organs
CPT/HCPCS: 45380; 88305; J2704; J3010; 00811

== ENCOUNTER 2022-06-03 13:21 | Emergency (ER) | payer MEDICARE, OTHER ==
[2022-06-03 14:32] LABS: POTASSIUM,K 3.9 mmol/L (3.5-5.1)
[2022-06-03 16:30] VITALS: BP 133/78; PULSE 84
== END 2022-06-03 16:29 | disposition home or self-care (01) ==
LOC: MW.ED 13:21
DX: U07.1 COVID-19 (principal); I10 Essential (primary) hypertension; Z88.5 Allergy status to narcotic agent; Z88.1 Allergy status to other antibiotic agents; Z91.040 Latex allergy status; Z79.82 Long term (current) use of aspirin; Z79.899 Other long term (current) drug therapy
CPT/HCPCS: 36415; 80048; 99283

== ENCOUNTER 2022-06-04 23:28 | Inpatient (IN) | payer MEDICARE, OTHER ==
[2022-06-04] MEDS ORDERED: Diltiazem 50 MG/10 ML SDV IVPUSH ONE (23:43)
[2022-06-04] MEDS ORDERED: Lactated Ringers 1,000 ML IV STA (23:44)
[2022-06-05 00:20] LABS: CARBON DIOXIDE,CO2 24.1 mmol/L (21.0-32.0)
[2022-06-05] MEDS ORDERED: Diltiazem IR 30 MG Tab PO ONE (01:29)
[2022-06-05] MEDS ORDERED: Diltiazem 50 MG/10 ML SDV IVPUSH STA ×2 (01:29→02:32)
[2022-06-05] MEDS ORDERED: Metoprolol Tartrate 25 MG Tab PO ONE (02:32)
[2022-06-05] MEDS ORDERED: Aspirin 81 MG Tab.Chew PO ONE (03:22)
[2022-06-05] MEDS ORDERED: Sodium Chloride 0.9% 1,000 ML IV ONE (03:33)
[2022-06-05] MEDS ORDERED: Iopamidol 755 MG/ML 500 ML Multipack Bottle IVPUSH ONE (04:15)
[2022-06-05] MEDS ORDERED: Enoxaparin 60 MG/0.6 ML Syringe SUBCUT STA (05:01)
[2022-06-05] MEDS ORDERED: Sodium Chloride 0.9% 2.5 ML Syringe FLUSH PRN (08:00)
[2022-06-05] MEDS ORDERED: Ondansetron 4 MG/2 ML SDV IVPUSH PRN (08:00)
[2022-06-05] MEDS ORDERED: Acetaminophen 325 MG Tab PO PRN (08:00)
[2022-06-05] MEDS ORDERED: Sodium Chloride 0.9% 10 ML Syringe FLUSH PRN (08:00)
[2022-06-05] MEDS ORDERED: Diltiazem 50 MG/10 ML SDV IVPUSH PRN (08:07)
[2022-06-05] MEDS: Diltiazem IR 60 MG Tab PO SCH ×2 (08:33→10:58)
[2022-06-05] MEDS: Potassium Chloride 20 MEQ Tab.ER PO SCH ×2 (08:34→12:31)
[2022-06-05] MEDS ORDERED: Docusate Sodium 100 MG Cap PO PRN (09:00)
[2022-06-05 09:06] LABS: CARBON DIOXIDE,CO2 27.7 mmol/L (21.0-32.0); POTASSIUM,K 3.6 mmol/L (3.5-5.1)
[2022-06-05] MEDS: Amiodarone 200 MG Tab PO SCH (11:04)
[2022-06-05 12:51] LABS: HEMOGLOBIN A1C 5.8 %
[2022-06-05] MEDS: Multivitamin Tab PO SCH (12:58)
[2022-06-05] MEDS: NIRMATRELVIR PO SCH ×2 (12:58→20:04)
[2022-06-05] MEDS: Calcium Carbonate/Vitamin D3 1500 MG-400 Units Tab PO SCH (12:58)
[2022-06-05] MEDS: RITONAVIR PO SCH ×2 (12:58→20:04)
[2022-06-05] MEDS ORDERED: LORazepam 0.5 MG Tab PO PRN (14:00)
[2022-06-05 14:08] VITALS: PULSE 115
[2022-06-05] MEDS ORDERED: Diltiazem IR 30 MG Tab PO SCH (18:00)
[2022-06-05] MEDS: Apixaban 5 MG Tab PO SCH (20:04)
[2022-06-05] MEDS ORDERED: Sertraline 50 MG Tab PO SCH (21:00)
[2022-06-05] MEDS ORDERED: Psyllium Husk Powder Sugar Free 5.85 GM Packet PO SCH (21:00)
[2022-06-05] MEDS: Famotidine 20 MG Tab PO SCH (21:32)
[2022-06-06 06:20] LABS: CARBON DIOXIDE,CO2 25.9 mmol/L (21.0-32.0)
[2022-06-06] MEDS: Calcium Carbonate/Vitamin D3 1500 MG-400 Units Tab PO SCH (08:23)
[2022-06-06] MEDS: Apixaban 5 MG Tab PO SCH ×3 (08:23→09:14)
[2022-06-06] MEDS: Amiodarone 200 MG Tab PO SCH (08:23)
[2022-06-06] MEDS: Famotidine 20 MG Tab PO SCH (08:23)
[2022-06-06] MEDS: Multivitamin Tab PO SCH (08:24)
[2022-06-06] MEDS: NIRMATRELVIR PO SCH (08:25)
[2022-06-06] MEDS: RITONAVIR PO SCH (08:25)
[2022-06-06] MEDS ORDERED: Diltiazem IR 30 MG Tab PO ONE (09:07)
[2022-06-06 12:10] VITALS: BP 124/56
== END 2022-06-06 13:00 | disposition home or self-care (01) | DRG 308 ==
LOC: MW.ED 23:28 → MW.MS 06-05 06:20 → MW.ICU 06-05 10:39
PROVIDERS: ADMIT Internal Medicine; ATTEND Internal Medicine
DX: I48.91 Unspecified atrial fibrillation (principal); U07.1 COVID-19; I47.1 Supraventricular tachycardia; F41.9 Anxiety disorder, unspecified; K58.9 Irritable bowel syndrome, unspecified; F32.A Depression, unspecified; I10 Essential (primary) hypertension; R77.8 Other specified abnormalities of plasma proteins; G43.909 Migraine, unspecified, not intractable, without status migrainosus; M85.80 Other specified disorders of bone density and structure, unspecified site; Z90.49 Acquired absence of other specified parts of digestive tract; Z79.01 Long term (current) use of anticoagulants; Z79.82 Long term (current) use of aspirin; Z79.899 Other long term (current) drug therapy; Z88.5 Allergy status to narcotic agent; Z88.1 Allergy status to other antibiotic agents; Z91.040 Latex allergy status; Z88.8 Allergy status to other drugs, medicaments and biological substances; Z90.89 Acquired absence of other organs; Z90.710 Acquired absence of both cervix and uterus
CPT/HCPCS: 36415 ×2; 71045; 71275; 80053; 83735; 84484 ×3; 85025; 85610; A9270 ×3; J1650; J3490 ×3; J7030; J7120; Q9967; U0002; 80048; 80061; 83036; 83880; 84443; 93005; 93306; 96361; 96372; 96374; 96376; 99222; 99238; 99291; 99292; J0282

== ENCOUNTER 2022-09-17 10:05 | Emergency (ER) | payer MEDICARE, OTHER ==
[2022-09-17] MEDS ORDERED: Adenosine 6 MG/2 ML SDV IVPUSH ONE (10:14)
[2022-09-17 11:05] VITALS: BP 143/81; PULSE 80
== END 2022-09-17 10:52 | disposition home or self-care (01) ==
LOC: MW.ED 10:05
DX: I47.1 Supraventricular tachycardia (principal); I10 Essential (primary) hypertension; Z88.5 Allergy status to narcotic agent; Z88.1 Allergy status to other antibiotic agents; Z91.040 Latex allergy status; Z79.899 Other long term (current) drug therapy; Z79.82 Long term (current) use of aspirin; Z86.16 Personal history of COVID-19; Z90.49 Acquired absence of other specified parts of digestive tract; Z90.710 Acquired absence of both cervix and uterus
CPT/HCPCS: 93010; 99283; 99284